=== PATIENT | female | born 1955 | race Caucasian/White ===

== ENCOUNTER 2016-09-17 17:21 | Emergency (ER) | payer BC, OTHER ==
--- NOTE | 2016-09-17 17:42 | ER Document Report ---
ED Medical Screen (RME) - General Stated Complaint: LACERATION TO LEFT 3RD DIGIT Time seen by provider: 17:39 Mode of Arrival: Ambulatory Information source: Patient Notes: 61-year-old cut her third left volar finger tip with a clean knife. Tetanus is less than 5 years. She has chronic anemia due to previous gastric bypass. Bleeding is controlled. I have greeted and performed a rapid initial assessment of this patient. A comprehensive ED assessment, evaluation of the patient, analysis of test results , and completion of the medical decision making process will be contacted by additional ED providers. - Related Data Allergies/Adverse Reactions: Penicillins Allergy (Verified 11/23/13 16:14) surgical glue Adverse Reaction (Uncoded 11/23/13 16:14) Past Medical History Endocrine Medical History: Reports: Hx Hypothyroidism Past Surgical History: Reports: Hx Gastric Bypass Surgery - Immunizations Immunizations up to date: No Physical Exam - Vital signs Vitals: Temp Pulse Resp BP Pulse Ox 98.9 F 74 20 114/66 96 09/17/16 17:37 09/17/16 17:37 09/17/16 17:37 09/17/16 17:37 09/17/16 17:37 Course - Vital Signs Vital signs: Temp Pulse Resp BP Pulse Ox 98.9 F 74 20 114/66 96 09/17/16 17:37 09/17/16 17:37 09/17/16 17:37 09/17/16 17:37 09/17/16 17:37
[2016-09-17 22:38] VITALS: BP 116/70
[2016-09-18] MEDS ORDERED: LIDOCAINE 1% INJ-PF (10 MG/ML) 30 ML SDV INJ ONE (01:04)
[2016-09-18] MEDS ORDERED: SULFAMETHOXAZOLE/TRIMETHOPRIM 800-160 MG TABLET PO ONE (01:05)
--- NOTE | 2016-09-18 01:06 | ER Document Report ---
ED Wound - General Chief Complaint: Laceration Stated Complaint: LACERATION TO LEFT 3RD DIGIT Time seen by provider: 01:05 Mode of Arrival: Ambulatory Notes: Patient is a 61-year-old female that comes emergency department for chief complaint of laceration to the left third digit over the finger pad, patient is not on a blood thinner, patient denies diabetes. Patient reports her tetanus is up-to-date within 5 years. On my evaluation the injury happened almost 8 hours ago. TRAVEL OUTSIDE OF THE [place] IN LAST 30 DAYS: No - Related Data Allergies/Adverse Reactions: Penicillins Allergy (Verified 11/23/13 16:14) surgical glue Adverse Reaction (Uncoded 11/23/13 16:14) Past Medical History - General Information source: Patient - Social History Smoking Status: Never Smoker Frequency of alcohol use: None Drug Abuse: None Lives with: Family Family History: None Patient has suicidal ideation: No Patient has homicidal ideation: No Endocrine Medical History: Reports: Hx Hypothyroidism Renal/ Medical History: Denies: Hx Peritoneal Dialysis Past Surgical History: Reports: Hx Gastric Bypass Surgery - Immunizations Immunizations up to date: No Review of Systems - Review of Systems Constitutional: No symptoms reported EENT: No symptoms reported Cardiovascular: No symptoms reported Respiratory: No symptoms reported Gastrointestinal: No symptoms reported Genitourinary: No symptoms reported Female Genitourinary: No symptoms reported Musculoskeletal: See HPI Skin: See HPI Hematologic/Lymphatic: No symptoms reported Neurological/Psychological: No symptoms reported Physical Exam - Vital signs Vitals: Temp Pulse Resp BP Pulse Ox 98.9 F 74 20 114/66 96 09/17/16 17:37 09/17/16 17:37 09/17/16 17:37 09/17/16 17:37 09/17/16 17:37 Interpretation: Normal - General General appearance: Appears well, Alert In distress: None - HEENT Head: Normocephalic, Atraumatic Eyes: Normal Pupils: PERRL - Respiratory Respiratory status: No respiratory distress Chest status: Nontender Breath sounds: Normal Chest palpation: Normal - Cardiovascular Rhythm: Regular Heart sounds: Normal auscultation Murmur: No - Abdominal Inspection: Normal Distension: No distension Bowel sounds: Normal Tenderness: Nontender Organomegaly: No organomegaly - Back Back: Normal, Nontender - Extremities General upper extremity: Other - 1.5 cm horizontal laceration over the left finger pad. Normal DIP, PIP range of motion, normal capillary refill and sensation General lower extremity: Normal inspection, Nontender, Normal color, Normal ROM , Normal temperature, Normal weight bearing. No: Halie's sign - Neurological Neuro grossly intact: Yes Cognition: Normal Orientation: AAOx4 [place] Coma Scale Eye Opening: Spontaneous Andres Coma Scale Verbal: Oriented Andres Coma Scale Motor: Obeys Commands [place] Coma Scale Total: 15 Speech: Normal Motor strength normal: LUE, RUE, LLE, RLE Sensory: Normal - Psychological Associated symptoms: Normal affect, Normal mood - Skin Skin Temperature: Warm Skin Moisture: Dry Skin Color: Normal Course - Vital Signs Vital signs: Temp Pulse Resp BP Pulse Ox 98.0 F 71 16 116/70 97 09/17/16 22:36 09/17/16 22:36 09/17/16 22:36 09/17/16 22:36 09/17/16 22:36 Procedures - Laceration/Wound Repair left third digit Wound length (cm): 1.5 Wound's Depth, Shape: Linear Anesthetic type: 1% Lidocaine Volume Anesthetic (mLs): 2 Wound explored: Clean, No foreign body removed Irrigated w/ Saline (mLs): 50 Wound Repaired With: Sutures Suture Size/Type: 5:0, Nylon Number of Sutures: 3 Post-procedure wound care: Sterile dressing applied Post-procedure NV exam normal: Yes Complications: No Discharge - Discharge Clinical Impression: Finger laceration Qualifiers: Encounter type: initial encounter Qualified Code(s): S61.219A - Laceration without foreign body of unspecified finger without damage to nail, initial encounter Condition: Stable Disposition: HOME, SELF-CARE Additional Instructions: Sutures need to come out in 5-7 days. Keep clean, clean gently with soap and water, avoid soaking, dab dry, apply thin film of antibiotic with dressing. Take Bactrim antibiotic as directed. Take Branford if needed for pain. Follow-up with primary care. Return for any signs of infection including redness, swelling, pus drainage, fever, etc. Prescriptions: Hydrocodone/Acetaminophen [Branford 5-325 mg Tablet] 1 - 2 tab PO ASDIR #10 tablet Sulfamethoxazole/Trimethoprim [Sulfatrim 800-160 mg/20 ml Mireya] 10 ml PO BID #1 bottle Forms: Return to Work, Treatment of Relative/Child Referrals: RAYMOND ADAMS [Primary Care Provider] - Follow up as needed
[2016-09-18] MEDS ORDERED: HYDROCODONE/ACETAMINOPHEN 5-325 MG 6 TAB/DSPK PO PRN (02:14)
== END 2016-09-18 02:30 | disposition home or self-care (01) ==
LOC: ER 17:21
PROC: 0HQGXZZ Repair Left Hand Skin, External Approach (ICD-10-PCS; principal; 2016-09-17)
DX: S61.213A Laceration without foreign body of left middle finger without damage to nail, initial encounter (principal); X58.XXXA Exposure to other specified factors, initial encounter
CPT/HCPCS: 99282

== ENCOUNTER → 2017-09-12 | Outpatient (CLI) | payer BC, OTHER ==
--- NOTE | 2017-09-13 09:17 | RADIOLOGY REPORT (SQ) ---
EXAM DESCRIPTION: MRI LT UPPER JOINT WITHOUT COMPLETED DATE/TIME: 09/12/2017 8:47 pm REASON FOR STUDY: PAIN IN LEFT SHOULDER M25.512 PAIN IN LEFT SHOULDER COMPARISON: None. TECHNIQUE: Left shoulder images acquired and stored on PACS. Multiplanar imaging to include fat sens itive sequences such as T1, water sensitive sequences such as FST2/STIR, cartilage sensitive sequence s such as FSPD/gradient-echo sequences. LIMITATIONS: None. FINDINGS: BONE MARROW AND CORTEX: No worrisome bone lesions or marrow replacement. No occult fractur es. JOINT OR BURSAL EFFUSION: Small amount of fluid in the subacromial/subdeltoid bursa GLENO-HUMERAL ARTICULATION: Normal articulation. No subluxation. No cystic change. No osteophytes or cartilage loss. ACROMION AND AC JOINT: Type 1 acromion, with downward sloping and bulky acromioclavicular joint hype rtrophy narrowing the subacromial space. This is best shown on sagittal images 10-13, and coronal im age 9 ROTATOR CUFF AND INTERVAL: There is a high-grade partial thickness tear in the anterior edge of the s upraspinatus tendon, best shown on coronal image 9 and sagittal image 15. Mild tendinopathy is seen elsewhere throughout the supraspinatus distally, extending into the anterior edge of the infraspinatu s tendon. No rotator interval tear. No rotator interval thickening to suggest adhesive capsulitis. LABRUM AND BICEPS LABRAL COMPLEX: Intra-articular long head biceps tendon is thickened and high sig nal from tendinopathy. There is diffuse degeneration throughout the of superior half of the labrum. No paralabral cysts. REMAINDER OF LABRUM AND IGHL : No gross tear or paralabral cyst formation. Labral evaluation is less than optimal without joint distention. No thickening of IGHL to suggest adhesive capsulitis. PERIARTICULAR AND ADJACENT SOFT TISSUES: No masses or abnormal nodes. OTHER: No other significant finding. IMPRESSION: Downward sloping acromion with bulky acromioclavicular joint hypertrophy, and fluid in t he subacromial/subdeltoid bursa. High-grade partial thickness tear anterior supraspinatus tendon. TECHNICAL DOCUMENTATION: JOB ID: [id number] [employer]- All Rights Reserved
== END ==
LOC: RAD 18:42
PROVIDERS: ATTEND Orthopaedic Surgery Sports Medicine
DX: M25.512 Pain in left shoulder (principal); S46.012A Strain of muscle(s) and tendon(s) of the rotator cuff of left shoulder, initial encounter; X58.XXXA Exposure to other specified factors, initial encounter

== ENCOUNTER 2020-01-03 20:39 | Emergency (ER) | payer BC, OTHER ==
[2020-01-03 21:35] LABS: APPEARANCE,URINE CLEAR; BILIRUBIN,URINE NEGATIVE (NEGATIVE); COLOR,URINE AMBER; GLUCOSE, URINE NEGATIVE (NEGATIVE); KETONES,URINE NEGATIVE (NEGATIVE); LEUKOCYTE ESTERASE,URINE TRACE (NEGATIVE); NITRITE,URINE POSITIVE (NEGATIVE); PROTEIN,URINE 30 mg/dL (NEGATIVE); URINE SPECIFIC GRAVITY 1.006
[2020-01-03] MEDS ORDERED: LEVOFLOXACIN 750 MG TABLET PO ONE (22:59)
[2020-01-03] MEDS ORDERED: PHENAZOPYRIDINE HCL 200 MG TABLET PO ONE (23:00)
--- NOTE | 2020-01-03 23:19 | ER Document Report ---
Entered by JOIE FONSECA SCRIBE 01/03/20 [id number] Acting as scribe for:DEREK HALL IV, MD ED GI/ - General Chief Complaint: Urinary Frequency Stated Complaint: FEVER,PAINFUL URINATION Time Seen by Provider: 01/03/20 22:49 Primary Care Provider: RAYMOND ADAMS MD [Primary Care Provider] - Follow up as needed Mode of Arrival: Ambulatory Information source: Patient Notes: This 64 year old female patient presents to the ED today with complaints of urinary frequency, dysuria, and hematuria. Patient states that she has a history of UTIs and that her symptoms feel similar to those in the past. She also notes right flank pain. She reports that she has used Levaquin and Pyridium in the past with resolve of her urinary symptoms. Denies fever or chills. TRAVEL OUTSIDE OF THE [place] IN LAST 30 DAYS: No - Related Data Allergies/Adverse Reactions: Penicillins Allergy (Verified 11/23/13 16:14) surgical glue Adverse Reaction (Uncoded 11/23/13 16:14) Past Medical History - General Information source: Patient, [facility] Records - Social History Smoking Status: Never Smoker Cigarette use (# per day): No Chew tobacco use (# tins/day): No Smoking Education Provided: No Family History: Reviewed & Not Pertinent Patient has suicidal ideation: No Patient has homicidal ideation: No Endocrine Medical History: Reports: Hx Hypothyroidism Past Surgical History: Reports: Hx Appendectomy, Hx Cholecystectomy, Hx Gastric Bypass Surgery, Hx Orthopedic Surgery - left meniscus removal, bilateral knee replacement - Immunizations Immunizations up to date: No Review of Systems - Review of Systems Constitutional: See HPI. denies: Chills, Fever EENT: No symptoms reported Cardiovascular: No symptoms reported Respiratory: No symptoms reported Gastrointestinal: No symptoms reported Genitourinary: See HPI, Dysuria, Frequency, Flank pain, Hematuria Female Genitourinary: No symptoms reported Musculoskeletal: No symptoms reported Skin: No symptoms reported Hematologic/Lymphatic: No symptoms reported Neurological/Psychological: No symptoms reported -: Yes All other systems reviewed and negative Physical Exam - Vital signs Vitals: Temp Pulse Resp BP Pulse Ox 98.9 F 79 16 141/79 H 94 01/03/20 20:44 01/03/20 20:44 01/03/20 20:44 01/03/20 20:44 01/03/20 20:44 Interpretation: Normal - General General appearance: Appears well, Alert In distress: None - HEENT Head: Normocephalic, Atraumatic Eyes: Normal Pupils: PERRL - Respiratory Respiratory status: No respiratory distress Chest status: Nontender Breath sounds: Normal Chest palpation: Normal - Cardiovascular Rhythm: Regular Heart sounds: Normal auscultation Murmur: No Friction rub: No Gallop: None auscultated - Abdominal Inspection: Normal Distension: No distension Bowel sounds: Normal Tenderness: Nontender - Abdomen soft Organomegaly: No organomegaly - Back Back: CVA tenderness - Right CVA tenderness to percussion - Extremities General upper extremity: Normal inspection General lower extremity: Normal inspection - Neurological Neuro grossly intact: Yes Orientation: AAOx4 - Psychological Associated symptoms: Normal affect, Normal mood - Skin Skin Temperature: Warm Skin Moisture: Dry Skin Color: Normal Course - Re-evaluation Re-evalutation: 01/03/20 23:00 Results of ED MSE discussed with patient. All questions were answered prior to discharge. Patient states she has had Levaquin for her urinary tract infections in the past and has tolerated this medication well. Patient states she is also used Pyridium in the past with relief of dysuria. Emergency signs and symptoms, reasons to return to the emergency department discussed with patient. - Vital Signs Vital signs: Temp Pulse Resp BP Pulse Ox 98.9 F 79 16 141/79 H 94 01/03/20 21:19 01/03/20 20:44 01/03/20 20:44 01/03/20 20:44 01/03/20 20:44 - Laboratory Laboratory results interpreted by me: 01/03/20 20:50 Urine Protein 30 H Urine Blood LARGE H Urine Nitrite POSITIVE H Urine Urobilinogen 4.0 H Ur Leukocyte Esterase TRACE H Discharge - Discharge Clinical Impression: UTI (urinary tract infection) Qualifiers: Urinary tract infection type: site unspecified Hematuria presence: with hematu lisa Qualified Code(s): N39.0 - Urinary tract infection, site not specified; R31.9 - Hematuria, unspecified Condition: Good Disposition: HOME, SELF-CARE Instructions: Urinary Tract Infection ([facility]) Additional Instructions: Return to the Emergency Department without delay if any worse. HOME CARE INSTRUCTIONS & INFORMATION: Thank you for choosing us for your medical needs. We hope you're satisfied with the care you received. After you leave, you must properly care for your problem and, at the same time, observe its progress. Any condition can change. Some illnesses can change rapidly over hours or days. If your condition worsens, return to the Emergency Department or see your physician promptly. ABOUT YOUR X-RAYS AND EKG'S: If you had an EKG or X-rays taken, they have been read by the Emergency Physician. The X-rays and EKG's will also be read by a Radiologist or Medical Records Coordinator within 24 hours. If discrepancies are noted, you will be notified by telephone. Please be certain the ED has a correct telephone number & address where you can be reached. Also, realize that some fractures or abnormalities do not show up on initial X-rays. If your symptoms continue, see your physician. ABOUT YOUR LABORATORY TEST: If you had laboratory tests, the results have been reviewed by the Emergency Physician. Some test results (for example cultures) may not be available for several days. You will be contacted if any test result shows you need additional treatment. Please be certain the ED has a correct telephone number and address where you can be reached. ABOUT YOUR MEDICATIONS: You will receive instructions on how to take your medicine on the prescription label you receive. Additional information may be provided by the Pharmacy. If you have questions afterwards, call the ED for clarification or further instructions. Some prescribed medications may cause drowsiness. Do not perform tasks such as driving a car or operating machinery without consulting your Pharmacist. If you feel you need a refill of pain medication, your condition will need re-evaluation. Please do not call for a refill of any medication. ABOUT YOUR SIGNATURE: Signature of this document acknowledges to followin. Understanding that you received emergency treatment and that you may be released before al medical problems are known or treated. Please be certain the ED has a correct phone number & address where you can be reached. 2. Acknowledgement that you will arrange for follow-up care as recommended. 3. Authorization for the Emergency Physician to provide information to your follow-up Physician in order to maximize your care. AT ANY TIME, IF YOUR SYMPTOMS CHANGE SIGNIFICANTLY OR WORSEN OR YOU DEVELOP NEW SYMPTOMS, RETURN TO THE EMERGENCY DEPARTMENT IMMEDIATELY FOR RE-EVALUATION. OUR GOAL IS TO PROVIDE EXCELLENT MEDICAL CARE! WE HOPE THAT WE HAVE MET YOUR EXPECTATIONS DURING YOUR EMERGENCY DEPARTMENT VISIT AND THAT YOU FEEL YOU HAVE RECEIVED EXCELLENT CARE! Prescriptions: Levofloxacin [Levaquin 750 mg Tablet] 750 mg PO DAILY 4 Days #4 tablet Phenazopyridine HCl [Pyridium 200 mg Tablet] 200 mg PO TID 2 Days #6 tablet Referrals: RAYMOND ADAMS MD [Primary Care Provider] - Follow up as needed I personally performed the services described in the documentation, reviewed and edited the documentation which was dictated to the scribe in my presence, and it accurately records my words and actions.
[2020-01-03 23:34] VITALS: BP 139/97
== END 2020-01-03 23:34 | disposition home or self-care (01) ==
LOC: ER 20:39
DX: N39.0 Urinary tract infection, site not specified (principal); R31.9 Hematuria, unspecified; Z98.84 Bariatric surgery status; Z88.0 Allergy status to penicillin
CPT/HCPCS: 99283; 81001; J3490